=== PATIENT | male | born 1980 | race Asian ===

== ENCOUNTER 2021-10-14 23:06 | Emergency (ER) | payer BC ==
[~2021-10-14] VITALS: Ht 175.3 cm; Wt 72.6 kg
[2021-10-14 23:19] VITALS: BP 149/75
[2021-10-14] MEDS ORDERED: PANTOPRAZOLE 40 MG TABEC PO ONE (23:20)
[2021-10-14] MEDS ORDERED: IBUPROFEN 800 MG TAB PO ONE (23:20)
--- NOTE | 2021-10-14 23:43 | NUR ---
LAB AT BEDSIDE
[2021-10-14 23:52] LABS: BASOPHILS # (AUTO) 0.1 K/uL (0.00-0.22); BASOPHILS % (AUTO) 0.8 % (0.0-2.0); EOSINOPHILS # (AUTO) 0.3 K/uL (0-0.4); HEMATOCRIT 45.4 % (36-52); HEMOGLOBIN 15.5 g/dL (12.0-18.0); LYMPHOCYTES # (AUTO) 1.8 K/uL (2.0-11.5); LYMPHOCYTES % (AUTO) 26.1 % (20.5-51.1); MEAN CORPUSCULAR HEMOGLOBIN 29 pg (27-31); MEAN CORPUSCULAR HGB CONC 34 g/dL (33-37); MEAN CORPUSCULAR VOLUME 86.1 fL (80-94); MONOCYTES # (AUTO) 0.5 K/uL (0.8-1.0); NEUTROPHILS # (AUTO) 4.2 K/uL (1.8-7.7); NEUTROPHILS % (AUTO) 61.1 % (42.2-75.2); PLATELET COUNT (AUTO) 151 K/uL (140-450); RED BLOOD CELL COUNT(AUTO) 5.28 MIL/uL (4.20-6.10); RED CELL DISTRIBUTION WIDTH 12.7 % (11.6-13.7); WHITE BLOOD COUNT (AUTO) 6.8 K/uL (4.8-10.8)
--- NOTE | 2021-10-15 00:34 | NUR ---
41 YO M BIB SELF WITH C/C OF 2/10 NON RAD PRESSURE-LIKE CHEST PAIN XSAT. PT STATES PAIN IS "JUST ANNOYING AND LINGERING". DENIES HEART PROBLEMS. -SOB. DENIES FEVER, N/V/D. DENIES HX, RX AND ALLERGIES
--- NOTE | 2021-10-15 00:40 | NUR ---
RAD AT BEDSIDE.
[2021-10-15 00:47] LABS: ANION GAP 9.9 (8-16); CARBON DIOXIDE 28.8 mmol/L (21-32); CHLORIDE 103 mmol/L (98-107); GLUCOSE 98 mg/dL (74-106); POTASSIUM 3.7 mmol/L (3.5-5.1); SODIUM SERUM 138 mmol/L (136-145)
[2021-10-15 00:48] LABS: ALBUMIN 3.5 g/dL (3.4-5.0); ASPARTATE AMINOTRANSFERASE 17 U/L (15-37); GFR ARICAN-AMERICAN 106 mL/min (>90); TOTAL BILIRUBIN 0.6 mg/dL (0.0-1.0); UREA NITROGEN, BLOOD 18 mg/dL (7-18)
[2021-10-15 01:26] VITALS: BP 149/75
--- NOTE | 2021-10-15 01:26 | NUR ---
Patient discharged with v/s stable. Written and verbal after care instructions given and explained. Patient verbalized understanding. Ambulatory with steady gait. All questions addressed prior to discharge. Advised to follow up with PMD.
== END 2021-10-15 01:26 | disposition home or self-care (01) ==
LOC: MED 23:06
DX: R07.89 Other chest pain (principal)
CPT/HCPCS: 36415; 71045; 80053; 84484; 85025; 93005; 99285; Q0092